=== PATIENT | female | born 1960 | race Caucasian/White ===

== ENCOUNTER 2017-09-19 06:38 | Day surgery (SDC) | payer OTHER ==
[2017-09-10 18:44] VITALS: BMI 21.6
[2017-09-19] MEDS ORDERED: DEXAMETHASONE SOD PHOSPHATE/PF 10 MG/ML SDV ONE (07:00)
[2017-09-19] MEDS ORDERED: ROPIVACAINE HCL 0.5% 30ML VIAL ONE (07:00)
[2017-09-19] MEDS ORDERED: MIDAZOLAM HCL 2 MG/2 ML SINGLE DOSE VIAL ONE (07:01)
[2017-09-19] MEDS ORDERED: SODIUM CHLORIDE 0.9% P/F 10 ML VIAL IJ ONE (07:01)
[2017-09-19] MEDS ORDERED: EPINEPHrine 1:1,000 1 MG/1 ML - 30ML VIAL (INJECTION) ONE (07:19)
[2017-09-19] MEDS ORDERED: BUPIVACAINE HCL/PF 0.5% (5MG/ML) 10 ML VIAL ONE (07:36)
[2017-09-19] MEDS ORDERED: PROPOFOL 20 ML ONE ×2 (08:12)
[2017-09-19] MEDS ORDERED: ceFAZolin SODIUM 1 GM VIAL ONE (08:17)
[2017-09-19] MEDS ORDERED: ONDANSETRON 4 MG/2 ML VIAL IVPUSH PRN (09:38)
[2017-09-19] MEDS ORDERED: oxyCODONE HCL 5 MG TABLET PO PRN (09:38)
[2017-09-19] MEDS ORDERED: ACETAMINOPHEN 325 MG TABLET (FP) PO PRN (09:38)
[2017-09-19] MEDS ORDERED: LACTATED RINGERS SOLUTION 1,000 ML IV SCH (09:45)
--- NOTE | 2017-09-19 10:15 | OP ---
Operative Note - Note: Operative Date: 09/19/17 Pre-Operative Diagnosis: left knee ACL rupture Operation: left knee arthroscopy with allograft ACL reconstruction, partial lateral meniscectomy Post-Operative Diagnosis: Same as Pre-op Surgeon: Herb Joyner Support Merchandiser: Jose Plascencia Anesthesiologist/[employer] LABORER: Rafa Branch Anesthesia: Spinal Operative Report Dictated: Yes
--- NOTE | 2017-09-19 12:08 | OP ---
DATE OF OPERATION: 09/19/2017 PREOPERATIVE DIAGNOSIS: Left knee anterior cruciate ligament rupture. POSTOPERATIVE DIAGNOSES: Left knee anterior cruciate ligament rupture, plus lateral meniscal tear. PROCEDURE: Left knee arthroscopy with anterior cruciate ligament reconstruction, allograft, partial lateral meniscectomy. SURGEON: Herb Joyner MD BUSINESS REPRESENTATIVE: Jose Plascencia MD ANESTHESIA: Spinal. POSTOPERATIVE CONDITION: Stable. COMPLICATIONS: None. IMPLANTS: [employer]rex TightRope x2. INDICATIONS: This is a pleasant 57-year-old female who had suffered an ACL injury on the knee. Treatment options including nonoperative versus operative management were discussed. Operative risks reviewed in detail including bleeding, infection, neurovascular injury, need for further surgery, postoperative pain and stiffness, graft failure or re-rupture, progression of osteoarthritis. We discussed medical risks such as heart attack, stroke, DVT, PE, and . I addressed all the patient's questions and concerns. We discussed the postoperative rehabilitation protocol. We discussed the use of perioperative DVT and antibiotic prophylaxis. Patient voiced understanding and elected to proceed. DESCRIPTION OF PROCEDURE: The patient was brought to the operating room where spinal anesthesia was administered. A block had been given in the preoperative holding area previously. The left lower extremity was then prepped and draped in the usual sterile fashion. A preoperative dose of antibiotics was given, and the usual timeout procedure was performed. The left knee was now examined, demonstrating full range of motion, no effusion. Positive Kacy, positive pivot shift. The anterolateral portal was now established after marking out the bony landmarks on the skin. The arthroscope was now passed to the knee. Examination of the patellofemoral joint demonstrated no lesions. Passing the arthroscope down into the notch demonstrated a full rupture of the ACL. The arthroscope was now passed medially. Here, no wilber meniscal tearing was seen. There was a little fraying at the junction of the posterior horn and body. The tibial cartilage demonstrated no significant articular lesions. However, there was some streak wear partial thickness along the lateral border of the medial femoral condyle. The probe was now passed, and the meniscus was found to be stable. The arthroscope was now passed into the lateral compartment. Here, there was a large oblique tear through the posterior horn, extending into the body of the meniscus. The meniscus was extending into the white-white zone, and therefore, debridement was deemed appropriate. Utilizing a combination of meniscal biters and a shaver, the tear was debrided down to a stable base. There was a large horizontal cleavage component, and in order to maintain as much as meniscal tissue as possible, this was left in place. Attention was now turned to the notch. Here, the remnant of the ACL was debrided. The lateral bifurcate ridge was identified on the femoral side, and the tibial footprint was also cleared off. The drill guide for the femoral side was now inserted through the lateral portal. This was centered onto the anatomic origin of the ACL. A small incision was made laterally, and the guide was passed down to the level of the bone. The FlipCutter was then drilled into the knee. Placement was verified, and then, the FlipCutter was toggled, creating a 30-mm socket on the femur. A passing suture was placed. The tibia side was now also identified using the guide this time with the camera in the lateral portal. A small incision was made in the anterior leg. The trocar was inserted down to the level of the bone. Again, FlipCutter was drilled into the anatomic ACL origin. A 40-mm socket was created here. Concurrently, the graft was prepared on the back table and loaded onto the 2 TightRopes. The passing sutures were now used to place the graft into the femoral socket. First, the TightRope was seen directly to pass through, and the button was seated firmly on the femoral cortex. Then, 20 mm of graft were toggled into the femoral side. The tibial side was then passed as well, and the knee was cycled several times. The button was now loaded onto the tibial side. With the knee in just 5-10 degrees of flexion, the button was loaded, and the graft was tightened. Kacy was now performed, and Kacy was negative. The excess sutures were now tied and then cut. The subcutaneous tissue was approximated using 3-0 Vicryl. The skin was closed using 4-0 nylon. Sterile dressings were placed. The patient was transferred to recovery room in stable condition. Usama [id number]
[2017-09-19 13:11] VITALS: BP 159/89; PULSE 62; TEMP 98
== END 2017-09-19 13:16 | disposition home or self-care (01) ==
LOC: FASU 06:38
PROVIDERS: ATTEND Orthopaedic Surgery Sports Medicine
PROC: 0SBD4ZZ Excision of Left Knee Joint, Percutaneous Endoscopic Approach (ICD-10-PCS; 2017-09-19)
PROC: 0MRP47Z Replacement of Left Knee Bursa and Ligament with Autologous Tissue Substitute, Percutaneous Endoscopic Approach (ICD-10-PCS; principal; 2017-09-19 08:33)
DX: S83.512A Sprain of anterior cruciate ligament of left knee, initial encounter (principal); S83.282A Other tear of lateral meniscus, current injury, left knee, initial encounter; X58.XXXA Exposure to other specified factors, initial encounter; Y93.9 Activity, unspecified; Y92.9 Unspecified place or not applicable
CPT/HCPCS: 94760